=== PATIENT | female | born 2000 ===

== ENCOUNTER 2024-11-28 21:35 | Emergency (ER) | payer MEDICAID, SELFPAY ==
[2024-11-28 21:44] VITALS: BP 102/64; PULSE 120; RESP 16; TEMP 37.2; O2SAT 98; BMI 25.2
--- NOTE | 2024-11-28 22:06 | MHC.EDTECH ---
Patient brought into triage area,labs,and urine collected,and sent to lab
[2024-11-28 22:26] LABS: Hematocrit 38.3 % (37.0-47.0); Hemoglobin 12.4 g/dl (12.0-16.0); Mean Corpuscular HGB Conc 32.4 g/dl (31.0-35.0); Mean Corpuscular Volume 83.4 fL (80.0-98.0); Mean Platelet Volume 8.4 fL (9.4-12.3); Platelet Count 349 X10*3/uL (160-400); Red Blood Count 4.59 X10*6/uL (4.20-5.50); Red Cell Distribution Width 14.4 % (11.0-16.0); White Blood Count 9.5 X10*3/uL (4.8-10.8)
[2024-11-28 22:30] LABS: Appearance Urine Turbid; Color Urine Dark Yellow; Glucose Urine UA Negative (Negative); Leukocyte Esterase Urine Moderate (2+) (Negative); Nitrite Urine Negative (Negative); PH 5.5 (5.0-9.0); Specific Gravity - Urine >= 1.030 (1.005-1.025); UMIC TRIGGER UACC YES; UPreg QC Valid YES; Urine Blood Trace (Negative); Urine Ketones 40 mg/dL (Negative); Urine Pregnancy NEGATIVE (NEGATIVE); Urine Protein 30 (1+) mg/dL (Neg-Trace)
[2024-11-28 22:34] LABS: Alanine Aminotransferase 15 U/L (0-31); Albumin Level 3.9 g/dL (3.5-5.0); Alkaline Phosphatase 82 U/L (39-117); Anion Gap 6 (12-20); Aspartate Amino Transferase 26 U/L (5-31); Bilirubin Total 0.6 mg/dL (0.0-1.0); Blood Urea Nitrogen 8 mg/dL (9-16); Carbon Dioxide 23 mmol/L (22-29); Chloride 110 mmol/L (96-108); Creatinine Clr Calc Pharmacy 97.2; Estimated Glomerular Filt Rate > 60; Glucose Random 101 mg/dL (60-115); Potassium 3.3 mmol/L (3.3-5.1); Sodium 136 mmol/L (135-145); Total Protein 7.3 g/dL (6.5-8.0)
[2024-11-28 22:38] LABS: Bacteria Urine 4+ (None Seen); Squamous Epithelial Cell Urine >20 /HPF (0-2); UACC Culture Trigger YES; WBC Urine 21-50 /HPF (0-5)
[2024-11-28 23:59] VITALS: BP 102/68; PULSE 101; RESP 18; TEMP 37.2; O2SAT 100
--- NOTE | 2024-11-29 02:33 | ED_ITS ---
HPI - Abdominal Pain General Chief Complaint: Abdominal Pain Stated Complaint: vomiting, abdominal pain Time Seen by Provider: 11/29/24 02:32 Source: patient and other (Boyfriend) Mode of arrival: ambulatory Limitations: language barrier (Patient was Korean-speaking only, [facility] early childhood assistant used) History of Present Illness ED Provider: Dr. Trae Rice HPI narrative: 24-year-old female with no significant past medical history who presents emergency department for evaluation of nausea vomiting and abdominal pain with symptoms beginning last night. The patient states she has had multiple episodes of vomiting and unable to hold down food or fluid. She was complaining of moderate to severe abdominal pain. She points to her epigastric area when asked to localize his pain. She states she was feeling weak, dizzy and fatigued. She denied fever but did have chills. She denied rhinorrhea sore throat, cough, chest pain or shortness of breath. She denied myalgias arthralgias. Related Data Previous Rx's ?Medication ?Instructions ?Recorded acetaminophen 500 mg tablet 1,000 mg (2 x 500 mg) PO Q6H PRN 11/29/24 (Tylenol Extra Strength) fever or pain #20 tabs ibuprofen 400 mg tablet 400 mg PO TID PRN fever or pain 11/29/24 #30 tabs ondansetron 4 mg disintegrating 4 mg PO Q6-8H PRN nausea and 11/29/24 tablet vomiting #14 tabs Allergies Allergy/AdvReac Type Severity Reaction Status Date / Time No Known Allergies Allergy Verified 11/28/24 21:46 Review of Systems Review of Systems Yes all other systems are reviewed and are negative [facility] Past Medical History [facility] Narrative: Social history: She denies tobacco, alcohol and drug use Social History Social History Alcohol intake: current Alcohol intake frequency: holidays/special occasions only Smoked in Last 30 Days: No Use of substances other than those prescribed or required for medical reasons: No Advance Directives: No Advance Directives Information Provided: No Patient : No Physical Exam ED Vital Signs: Vital Signs - 24 hr 11/28/24 21:44 11/28/24 23:59 11/29/24 04:11 Temperature 98.9 F 98.9 F 97.8 F Pulse Rate 120 H 101 H 88 Respiratory Rate 16 18 16 Blood Pressure 102/64 102/68 95/48 L Pulse Oximetry 98 100 98 Oxygen Delivery Method Room Air Room Air BMI result Body Mass Index 25.2 Vital signs were normal Exam: General: Awake, alert in no distress Head: Normocephalic, atraumatic EENT: PERRL, Lids normal, sclera normal, conjunctiva normal, nose normal , ears normal, throat without erythema or exudates Neck: Supple, no adenopathy Lung: breath sounds symmetric, no wheezing, rales or rhonchi Chest: symmetric movement, nontender Heart: regular rate and rhythm, normal S1, S2 no murmurs or rubs Abdomen: soft, non-tender, nondistended, normal bowel sounds Back: no vertebral tenderness, no CVAT Extremities: no deformities, moves all extremities symmetrically Neuro: Awake, alert, oriented, normal speech, cranial nerves intact, moves all extremities symmetrically Psych: Pleasant, cooperative Medical Decision Making Medical Decision Making [facility] Narrative: 24-year-old female with no significant past medical history who presents emergency department for evaluation of nausea vomiting and abdominal pain with symptoms beginning last night. The patient states she has had multiple episodes of vomiting and unable to hold down food or fluid. She was complaining of moderate to severe abdominal pain. She points to her epigastric area when asked to localize his pain. She states she was feeling weak, dizzy and fatigued. Vital signs were unremarkable. Physical examination was unremarkable except for epigastric tenderness. Differential diagnosis: ?Includes but is not limited to pancreatitis, diverticulitis, gastritis, viral syndrome, gastroenteritis, electrolyte abnormalities, anemia, dehydration Course: 03:04 My interpretation patient's laboratory evaluation is as follows: CBC was normal. CMP revealed an elevated chloride of 110 otherwise unremarkable. Urinalysis revealed a high specific gravity, positive protein, trace blood, moderate leukocyte esterase. High microscopic revealed 11-20 RBCs, 21-50 WBCs greater than 20 squamous cells 4+ bacteria-this is non clean catch specimen Patient was presentation is most consistent with viral syndrome. Patient was ordered to get the following: Normal saline IV x1 L, Toradol 15 mg IV and Zofran 4 mg IV. 06:15 Patient was feeling significantly better with the above treatment. Patient was discharged with prescriptions for Zofran 4 mg ODT, ibuprofen and Tylenol. She was given printed and verbal instructions and discharged home. Admission/Observation Consideration of admission/observation: Escalation of care including admission/observation considered (Yes) Lab Data [facility] Lab Attestation statement: I reviewed the patient's lab results. 11/28/24 22:06 11/28/24 22:06 Labs: Lab Results 11/28/24 Range/Units 22:06 WBC 9.5 (4.8-10.8) X10*3/uL RBC 4.59 (4.20-5.50) X10*6/uL Hgb 12.4 (12.0-16.0) g/dl Hct 38.3 (37.0-47.0) % MCV 83.4 (80.0-98.0) fL MCH 27.0 (27.0-33.0) pg MCHC 32.4 (31.0-35.0) g/dl RDW 14.4 (11.0-16.0) % Plt Count 349 (160-400) X10*3/uL MPV 8.4 L (9.4-12.3) fL Absolute Nucleated RBC 0.000 (0.0-0.012) X10*3/uL Nucleated RBC % (auto) 0.0 (0.0-0.2) /100WBC Sodium 136 (135-145) mmol/L Potassium 3.3 (3.3-5.1) mmol/L Chloride 110 H (96-108) mmol/L Carbon Dioxide 23 (22-29) mmol/L Anion Gap 6 L (12-20) BUN 8 L (9-16) mg/dL Creatinine 0.78 (0.5-1.4) mg/dL Estim Creat Clear Calc 97.2 Estimated GFR > 60 Random Glucose 101 (60-115) mg/dL Calcium 8.0 L (8.4-10.2) mg/dL Total Bilirubin 0.6 (0.0-1.0) mg/dL AST 26 (5-31) U/L ALT 15 (0-31) U/L Alkaline Phosphatase 82 (39-117) U/L Total Protein 7.3 (6.5-8.0) g/dL Albumin 3.9 (3.5-5.0) g/dL Urine Color Dark Yellow Urine Appearance Turbid Urine pH 5.5 (5.0-9.0) Ur Specific [place] >= 1.030 H (1.005-1.025) Urine Protein 30 (1+) H (Neg-Trace) mg/dL Urine Glucose (UA) Negative (Negative) mg/dL Urine Ketones 40 (Negative) mg/dL Urine Blood Trace H (Negative) Urine Nitrite Negative (Negative) Ur Leukocyte Esterase Moderate (2+) H (Negative) Urine RBC 11-20 H (0-2) /HPF Urine WBC 21-50 H (0-5) /HPF Ur Squamous Epith Cells >20 (0-2) /HPF Urine Bacteria 4+ (None Seen) Hyaline Casts 3-5 (0-2) /LPF Urine Test NEGATIVE (NEGATIVE) Prescription Management I considered prescription management with: Pain Medication and Other (Antiemetic: Zofran) Medications Administered Discontinued Medications Generic Name Dose Route Start Last Admin Trade Name [place] PRN Reason Stop Dose Admin Sodium Chloride 1,000 mls @ 999 mls/hr 11/29/24 02:45 11/29/24 04:06 Ns IV 11/29/24 03:45 Infused .Q1H1M STA Infusion Ketorolac Tromethamine 15 mg 11/29/24 02:45 11/29/24 02:56 Ketorolac Tromethamine 15 Mg/Ml Vial IVPUSH 11/29/24 02:46 15 mg ONCE STA Administration Ondansetron HCl 4 mg 11/29/24 02:45 11/29/24 02:56 Ondansetron Hcl 4 Mg/2 Ml Vial IVPUSH 11/29/24 02:46 4 mg ONCE ONE Administration Discharge Plan Discharge Clinical Impression: Viral syndrome, Abdominal pain, Vomiting Patient Disposition: Home, Self-Care Instructions: Viral Syndrome (ED) Additional Instructions: Your blood work was unremarkable. Your symptoms are consistent with a viral infection. Take ibuprofen 400 mg pills, 1 pills every 6 hours as needed for pain or fever. Take Tylenol (acetaminophen) 500 mg pills, 2 pills every 6 hours as needed for pain or fever. Take Zofran ODT 4 mg pills, 1 pill dissolved in your mouth every 8 hours as needed for nausea and vomiting. For the next 24 hours, stay on a ANGI diet (bananas, rice, applesauce, tea and toast). Follow-up with your doctor in 2 days. Please return to the emergency department if your symptoms get worse or if you develop any symptoms that are concerning to you. Prescriptions: New acetaminophen [Tylenol Extra Strength] 500 mg tablet 1,000 mg PO Q6H PRN (Reason: fever or pain) Qty: 20 0RF ibuprofen 400 mg tablet 400 mg PO TID PRN (Reason: fever or pain) Qty: 30 0RF ondansetron 4 mg tablet,disintegrating 4 mg PO Q6-8H PRN (Reason: nausea and vomiting) Qty: 14 0RF Print Language: Korean
[2024-11-29] MEDS: ondansetron HCL 4 MG/2 ML VIAL IVPUSH (02:56)
[2024-11-29] MEDS: 0.9 % Sodium Chloride 1,000 ML 999 ML IV (02:56)
[2024-11-29] MEDS: Ketorolac Tromethamine 15 MG/ML VIAL IVPUSH (02:56)
[2024-11-29 04:11] VITALS: BP 95/48; PULSE 88; RESP 16; TEMP 36.6; O2SAT 98
[2024-11-29 06:26] VITALS: BP 95/48; PULSE 88; RESP 16; TEMP 36.6; O2SAT 98
== END 2024-11-29 06:34 | disposition home or self-care (01) ==
PROVIDERS: Emergency Provider Emergency Medicine Emergency Medical Services
DX: B34.9 Viral infection, unspecified (principal); R10.2 Pelvic and perineal pain; R11.2 Nausea with vomiting, unspecified; Z79.899 Other long term (current) drug therapy
CPT/HCPCS: 36415; 80053; 81001; 81025; 85027; 87086; 96361; 96374; 96375; 99284; J1885; J2405

== ENCOUNTER 2025-01-16 23:22 | Emergency (ER) | payer MEDICAID, SELFPAY ==
--- NOTE | ~2025-01-16 | XR_ITS ---
CLINICAL HISTORY: fall, pain 3 view right ankle Comparison: None Findings: No acute fractures or dislocations. No significant loss of joint space, osteophytes, or erosions. No ankle effusion. No radiopaque foreign body. IMPRESSION: 1. No acute findings. This document has been electronically signed by: Braxton Claire MD, PHD on 01/17/2025 03:18:59
[2025-01-16 23:26] VITALS: BP 107/70; PULSE 96; RESP 16; TEMP 36.4; O2SAT 95; BMI 23.4
[2025-01-17 00:37] VITALS: BP 107/58; PULSE 83; RESP 16; TEMP 36.8; O2SAT 99
[2025-01-17 01:25] VITALS: BP 105/65; PULSE 81; RESP 15; TEMP 36.7; O2SAT 99
[2025-01-17] MEDS: Acetaminophen 325 MG TABLET 975 MG PO (01:36)
--- NOTE | 2025-01-17 03:07 | ED.LOWEXIN ---
HPI - Extremity Injury (Lower) General Chief Complaint: Extremity Injury, Lower Stated Complaint: Sprained right Ankle? Time Seen by Provider: 01/17/25 03:00 Source: patient Mode of arrival: wheelchair Limitations: no limitations History of Present Illness ED Provider: Dr. Kirstin Martinez HPI Narrative: patient comes in the emergency room complaining of right ankle pain. Patient states that earlier today she slipped and sprain her ankle. Unable to bear weight. Denies any other injuries. Related Data Previous Rx's ?Medication ?Instructions ?Recorded acetaminophen 500 mg tablet 1,000 mg (2 x 500 mg) PO Q6H PRN 11/29/24 (Tylenol Extra Strength) fever or pain #20 tabs ibuprofen 400 mg tablet 400 mg PO TID PRN fever or pain 11/29/24 #30 tabs ondansetron 4 mg disintegrating 4 mg PO Q6-8H PRN nausea and 11/29/24 tablet vomiting #14 tabs ibuprofen 600 mg tablet 600 mg PO QID PRN fever or pain 01/17/25 #30 tabs Allergies Allergy/AdvReac Type Severity Reaction Status Date / Time No Known Allergies Allergy Verified 01/16/25 23:27 Review of Systems Review of Systems: Constitutional : No Weight loss, No Fever, No Chills, No Night Sweats, No Fatigue, No Malaise ENT/Mouth : No Hearing loss, No Ear Pain, No Nasal Congestion, No Sinus Pain, No Hoarseness, No sore throat, No Rhinorrhea, No Swallowing Difficulty Eyes: No Eye Pain, No Swelling, No Redness, No Foreign Body, No Discharge, No Vision Changes Cardiovascular : No Chest Pain, No SOB, No Dyspnea on Exertion, No Orthopnea, No Edema, No Palpitations Respiratory : No Cough, No Sputum, No Wheezing, No Smoke Exposure, No Dyspnea Gastrointestinal : No Nausea, No Vomiting, No Diarrhea, No Constipation, No abdominal Pain, No Hematochezia, No Melena Genitourinary : no irregular bleeding, No Dysuria, No Urinary Frequency, No Hematuria, No Urinary Incontinence, No Urgency, No Flank Pain, No Urinary Flow Changes, No Hesitancy Musculoskeletal : Complaining of right ankle pain, No Myalgias, No Joint Swelling Skin : No Skin Lesions, No rash Neuro : No Weakness, No Numbness, No Paresthesias, No Loss of Consciousness, No Dizziness, No Headache Psych : No Anxiety/Panic, No Depression, No SI/HI/AH/VH, No Social Issues, Heme/Lymph: No Bruising, No Bleeding,No Lymphadenopathy Endocrine : No Polyuria, No Polydipsia, No Temperature Intolerance [facility] Social History Social History Alcohol intake: current Alcohol intake frequency: holidays/special occasions only Smoked in Last 30 Days: No Use of substances other than those prescribed or required for medical reasons: No Advance Directives: No Advance Directives Information Provided: Yes Physical Exam Vital Signs: Vital Signs: Last Vital Signs Temp 98.0 F 01/17/25 01:25 Pulse 81 01/17/25 01:25 Resp 15 01/17/25 01:25 BP 105/65 01/17/25 01:25 Pulse Ox 99 01/17/25 01:25 O2 Del Method Room Air 01/17/25 01:25 BMI result Body Mass Index 23.4 Const: Other: Appearance: Alert. Oriented X3. No acute distress. Eyes: Pupils equal, round and reactive to light. ENT: Pharynx normal. Neck: Normal inspection. Neck supple. No lymph nodes noted. No crepitus CVS: Normal heart rate and rhythm. Pulses normal. Normal S1 and S2 Respiratory: No respiratory distress. Breath sounds normal. No Wheezing. No rales Abdomen: Soft and nontender. No rigidity. No distention. Skin: Skin warm and dry. Normal skin color. Normal skin turgor. Extremities: No lower extremity edema. no obvious deformity, no ecchymosis, no swelling. Patient states that she can not stand up or bear weight due to pain Neuro: Oriented X 3. No motor deficit. No sensory deficit. Moving all extremities. No slurred speech. CN 2 through 12 grossly intact Psych: calm, cooperative, normal affect Medications Administered Discontinued Medications Generic Name Dose Route Start Last Admin Trade Name Freq PRN Reason Stop Dose Admin Acetaminophen 975 mg 01/17/25 01:31 01/17/25 01:36 Acetaminophen 325 Mg Tablet PO 01/17/25 01:32 975 mg ONCE ONE Administration Medical Decision Making Medical Decision Making [facility] Narrative: my interpretation of x-ray: No fracture Independent Interpretation I performed an independent interpretation of an: Plain X-Ray Radiology Impression Discussion of test interpretation with radiology: I have reviewed the radiologist's reading. Radiologist Impression: No acute fractures or dislocations. No significant loss of joint space, osteophytes, or erosions. No ankle effusion. No radiopaque foreign body. IMPRESSION: 1. No acute findings. Discharge Plan Discharge Clinical Impression: Ankle sprain and strain Patient Disposition: Home, Self-Care Instructions: Ankle Sprain (ED), Crutch Instructions (ED), Ice Pack Application (ED) Additional Instructions: Please follow-up with your primary care physician tomorrow. If you have any worsening or new symptoms, please return to the emergency room or call 911 Prescriptions: New ibuprofen 600 mg tablet 600 mg PO QID PRN (Reason: fever or pain) Qty: 30 0RF No Action acetaminophen [Tylenol Extra Strength] 500 mg tablet 1,000 mg PO Q6H PRN (Reason: fever or pain) Qty: 20 0RF ibuprofen 400 mg tablet 400 mg PO TID PRN (Reason: fever or pain) Qty: 30 0RF ondansetron 4 mg tablet,disintegrating 4 mg PO Q6-8H PRN (Reason: nausea and vomiting) Qty: 14 0RF Stand Alone Forms: Work/School Release Print Language: Maltese
[2025-01-17 04:28] VITALS: BP 105/65; PULSE 81; RESP 15; TEMP 36.7; O2SAT 99
== END 2025-01-17 04:32 | disposition home or self-care (01) ==
PROVIDERS: Emergency Provider Emergency Medicine
DX: S93.401A Sprain of unspecified ligament of right ankle, initial encounter (principal); W01.0XXA Fall on same level from slipping, tripping and stumbling without subsequent striking against object, initial encounter; Y93.9 Activity, unspecified; Y92.9 Unspecified place or not applicable; Y99.8 Other external cause status
CPT/HCPCS: 73600; 99283; 99284

== ENCOUNTER → 2025-01-16 23:40 | Outpatient (BNV) | payer MEDICAID, SELFPAY | PROVIDERS: Emergency Provider Emergency Medicine; Visit Provider General Practice | DX: M25.571 Pain in right ankle and joints of right foot (principal) | CPT/HCPCS: 73600 ==

== ENCOUNTER 2025-10-03 14:45 | Outpatient (REF) | payer OTHER, MEDICAID, SELFPAY ==
--- OUTSIDE RECORDS SUMMARY | 2025-09-18 09:45 | XMS_ITS ---
Author Organization [facility] Address [address] [place] [address] Care Team Providers Care Upper Trimmer Name Role Phone MERT BETHEA Unavailable [phone] REASON FOR VISIT IUD In Social History Sex Assigned At : Social History Observation Description Sex Assigned At Female Encounters Encounter Location Date Provider Diagnosis [address] [phone] 03/2025 MERT BETHEA Plan Of Treatment Next Appt Details Provider Name:MERT BETHEA, 08/2025 10:00:00 AM, [address] [place] [address], [phone], Provider Name:MERT BETHEA, 03:00:00 PM, [address] [place] [address], [phone], Progress Notes * Marc ORTEGAB:1999 (25 yo F)Acc No.[id number]:09/18/2025 Progress Note Patient: Jessi rollinsSushila choe Provider: Timur BETHEA :2000 A ge:25 Y S ex:Female Date:09/18/2025 Address:[address] [place], [id number] Subjective: * Chief Complaints: * I UD In * Electronic signature of ANNELIESE BETHEA CNM on 10/03/2025 at 08:17 PM EST Sign off status: Pending * Provider: Timur BETHEA Date: 11/18/2024 Generated for Terri odonnell/Suzi/Merlin on: 12/03/2024 08:17 PM EST
--- NOTE | ~2025-10-03 | XR_ITS ---
EXAMINATION: XR CHEST CLINICAL INFORMATION: positive TB test COMPARISON: None available. TECHNIQUE: 2 views of the chest were obtained. FINDINGS: The cardiac, hilar, and mediastinal contours are normal. The lungs are clear bilaterally. There is no pneumothorax or pleural effusion. There is no focal osseous or soft tissue abnormality. There is a gentle levoconvex thoracic scoliosis. XR/XR chest 2V IMPRESSION: Normal chest. Electronically signed by: Clay Obregon MD 10/03/2025 03:05 PM ADRIAN GARCIA
--- OUTSIDE RECORDS SUMMARY | 2025-10-03 14:20 | XMS_ITS | Encounter Summary ---
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 Social History Tobacco Use Types Packs/Day Years Used Date Smoking Tobacco: Never Smokeless Tobacco: Never Tobacco Cessation:Counseling Given: Not Answered Comments No Sex and Gender Information Value Date Recorded Sex Assigned at Female 10/01/2024 3:33 PM EST Legal Sex Female 11:27 AM EDT Gender Identity Female 10/01/2024 3:33 PM EST Sexual Orientation Choose not to disclose 2023 3:33 PM EST documented as of this encounter Last Filed Vital Signs Vital Sign Reading Time Taken Comments Blood Pressure 110/70 10/03/2025 1:43 PM EST Pulse 83 10/03/2025 1:43 PM EST Temperature 36.6 C (97.8 F) 10/03/2025 1:43 PM EST Respiratory Rate 21 10/03/2025 1:43 PM EST Oxygen Saturation 99% 10/03/2025 1:43 PM EST Inhaled Oxygen Concentration - - Weight 59.4 kg (131 lb) 10/03/2025 1:43 PM EST Height 152.4 cm (5') 10/03/2025 1:43 PM EST Body Mass Index 25.58 10/03/2025 1:43 PM EST documented in this encounter Progress Notes * Phoebe Griffithsjosias, DO - 10/03/2025 2:20 PM EST SUBJECTIVE: Sushila Rubio is a 25 y.o. year old female who presents for [place]F [place] visit. She has not hadPCP since she moved from [facility] more than one year ago. HPI She comes to [place] c/o headache. Sushila Rubio, age 25 years Headache - Reports headache for several days prior to the visit - Headache described as persistent, sometimes stronger, and not fully relieved by medication - Onset approximately 5 days prior to the encounter - Headache is intermittent, comes and goes, sometimes more intense - Has had headaches before, but this is the first time experiencing headaches for so many consecutive days - Reports associated nausea, especially with food - Denies photophobia and phonophobia (lights and noise do not bother her) - Has tried medication for headache, which helps but does not completely resolve symptoms Weight loss and decreased appetite - Reports weight loss and lack of appetite prior to the visit - States do not feel like eating anything - Unable to compare current weight to previous weight, but notes physical changes in clothing fit Tuberculosis screening - Underwent tuberculosis (TB) test for employment purposes prior to the visit - TB test performed at a clinic, with follow-up visits on Tuesday and Tuesday prior to the encounter - TB test result reported as positive - No symptoms of active TB reported - Has been referred to a TB clinic for further evaluation Nausea - Reports nausea, particularly with food Past surgical history relevant to present illness - History of umbilical hernia repair Misc - Last menstrual period reported as September 14, 2025 - Reports mild anxietyHeadache - Reports headache for several days prior to the visit, started about 5 days ago - She describes headache as a pressure pain in the frontal and temporal areas, she denies any URI sx - Headache described as persistent, sometimes stronger and more intense, other times less intense - Has tried tylenol for headache, which helps but does not completely resolve symptoms - Has had headaches before, but this is the first time experiencing headaches for so many consecutive days - Reports associated nausea, especially with food - Denies photophobia and phonophobia (lights and noise do not bother her) - Denies any depressive sx, reports mild anxiety Weight loss and decreased appetite - Reports weight loss and lack of appetite - States do not feel like eating anything ; she feels nausea when she eats - States that she used to weigh 60kg; she has not checked weight recently but feels that her clothing fits differently - She is sexually active with her partner, LMP 09/14/2025 Tuberculosis screening - Underwent tuberculosis (TB) test for employment purposes - TB test performed at a clinic in [place] on Tuesday and follow up on Tuesday - TB test result reported as positive - No symptoms of active TB reported - Has been referred to a TB clinic for further evaluation and was told would be contacted in 3-4 weeks; she was not referred for CXR Review of Systems Constitutional: Negative for chills and fever. HENT: Negative for congestion, postnasal drip, rhinorrhea and sore throat. Eyes: Negative for photophobia and visual disturbance. Respiratory: Negative for cough and shortness of breath. Cardiovascular: Negative for chest pain and leg swelling. Gastrointestinal: Positive for nausea. Negative for abdominal pain, diarrhea and vomiting. Skin: Negative for rash. Neurological: Positive for headaches. Negative for dizziness. There is no problem list on file for this patient. No Known Allergies OBJECTIVE Vitals: 10/03/25 1343 BP: 110/70 BP Location: Right arm Patient Position: Sitting BP Cuff Size: Adult Pulse: 83 Resp: 21 Temp: 97.8 ??F (36.6 ??C) TempSrc: Oral SpO2: 99% Weight: 131 lb (59.4 kg) Height: 5' (1.524 m) Physical Exam Constitutional: General: She is not in acute distress. Appearance: Normal appearance. HENT: Right Ear: Tympanic membrane, ear canal and external ear normal. Left Ear: Tympanic membrane, ear canal and external ear normal. Nose: No congestion or rhinorrhea. Mouth/Throat: Pharynx: No oropharyngeal exudate or posterior oropharyngeal erythema. Eyes: Extraocular Movements: Extraocular movements intact. Conjunctiva/sclera: Conjunctivae normal. Pupils: Pupils are equal, round, and reactive to light. Cardiovascular: Rate and Rhythm: Normal rate and regular rhythm. Heart sounds: Normal heart sounds. No murmur heard. Pulmonary: Effort: Pulmonary effort is normal. Breath sounds: Normal breath sounds. No wheezing or rhonchi. Musculoskeletal: Cervical back: Normal range of motion and neck supple. No tenderness. Lymphadenopathy: Cervical: No cervical adenopathy. Neurological: General: No focal deficit present. Mental Status: She is alert and oriented to person, place, and time. Cranial Nerves: No cranial nerve deficit. Motor: No weakness. Gait: Gait normal. Psychiatric: Mood and Affect: Mood normal. Office Visit on 10/03/2025 Component Date Value Ref Range Status Preg Test, Ur 10/03/2025 Negative Negative, Indeterminate, None Detected, Trace, 3+, Specimen unsatisfactory for evaluation, Weakly Positive, 1+, 2+ Final QC Media Lot # 10/03/2025 [id number] Final Lot# Expiration Date 10/03/2025 [id number] Final ASSESSMENT/PLAN Diagnoses and all orders for this visit: Acute intractable headache, unspecified headache type Improved but not relieved with pain meds, no associated symptoms, no acute findings on exam, likelytension headache -provided reassurance -trial toradol to break current headache -trial motrin prn acute headache -advised keep MOCTEZUMA log and bring to CHEF visit for review -advised go to ED if no improvement with above or severe worsening pain - ketorolac (Toradol) injection 30 mg Nausea Predominantly with eating, possibly 2/2 GERD -check basic labs -trial prilosec daily -advised rtc if symptoms change or worsen, she agrees with plans - T4, Free; Future - Lipid Panel, Standard; Future - TSH; Future - Vitamin D, 25-Hydroxy, Total, Immunoassay; Future - Hepatic Function Panel; Future - Hemoglobin A1c; Future - CBC; Future - Basic Metabolic Panel; Future - Hepatitis B surface antigen, EIA; Future - Chlamydia/N. 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 Do not crush, chew, or split., Disp: 30 tablet, Rfl: 3 No current facility-administered medications for this visit. This note was drafted using Ambient (AI) technology. The patient/patient's guardian has been informed and has consented to the use of this technology: Yes documented in this encounter Plan of Treatment Scheduled Orders Name Type Priority Associated Diagnoses Orde r Schedule T4, Free Lab Routine Nausea Expected: 10/03/2025 (Approximate), Expires: 10/03/2026 Lipid Panel, Standard Lab Routine Nausea Expected: 10/03/2025 (Approximate), Expires: 10/03/2026 TSH Lab Routine Nausea Expected: 10/03/2025 (Approximate), Expires: 10/03/2026 Vitamin D, 25-Hydroxy, Total, Immunoassay Lab Routine Nausea Expected: 10/03/2025 (Approximate), Expires: 10/03/2026 Hepatic Function Panel Lab Routine Nausea Expected: 10/03/2025 (Approximate), Expires: 10/03/2026 Hemoglobin A1c Lab Routine Nausea Expected: 10/03/2025 (Approximate), Expires: 10/03/2026 CBC Lab Routine Nausea Expected: 10/03/2025, Expires: 10/03/2026 Basic Metabolic Panel Lab Routine Nausea Expected: 10/03/2025 (Approximate), Expires: 10/03/2026 Hepatitis B surface antigen, EIA Lab Routine Nausea Expected: 10/03/2025 (Approximate), Expires: 10/03/2026 Chlamydia/N. Gonorrhoeae RNA, TMA, Urogenitial Microbiology Routine Nausea Ordered: 10/03/2025 HIV-1/2 Antigen and Antibodies, Fourth Generation, with Reflexes Lab Routine Nausea Expected: 10/03/2025 (Approximate), Expires: 10/03/2026 Hepatitis C Antibody with Reflex to HCV, RNA, Quantitative, Real-Time PCR Lab Routine Nausea Expected: 10/03/2025, Expires: 10/03/2026 RPR (Monitor) with Reflex to Titer Lab Routine Nausea Expected: 10/03/2025, Expires: 10/03/2026 Hepatitis B Surface Antibody, Qualitative Lab Routine Nausea Expected: 10/03/2025 (Approximate), Expires: 10/03/2026 Hepatitis A Antibody, Total Lab Routine Nausea Expected: 10/03/2025 (Approximate), Expires: 10/03/2026 Hepatitis B Core Antibody, Total Lab Routine Nausea Expected: 10/03/2025 (Approximate), Expires: 10/03/2026 T-SPOT .TB Lab Routine 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 Expected: 10/03/2025 (Approximate), Expires: 10/03/2026 Prealbumin Lab Routine Nausea Expected: 10/03/2025, Expires: 10/03/2026 documented as of this encounter Procedures Procedure Name Priority Date/Time Associated Diagnosis Comments XR CHEST 2 VIEWS STAT 10/03/2025 3:15 PM EST 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 POCT , URINE Routine 10/03/2025 2:55 PM EST Nausea documented in this encounter Results * XR Chest 2 Views (10/03/2025 3:15 PM EST) Anatomical Region Laterality Modality Chest Radiographic Nelida ging 10/03/2025 3:15 PM EST Narrative 10/03/2025 3:08 PM EST [address] [address] XRay Report Signed Patient: Sushila Ortiz MR# : [id number] : 2000 Acct:[id number] Age/Sex: 25 / F ADM Date: 10/03/25 Loc: [facility] Attending Dr: Phoebe Grajeda DO Ordering Physician: Phoebe Grajeda DO Date of Service: 10/03/25 Procedure(s): XR chest 2V Accession Number(s): [id number] cc: Phoebe Grajeda DO Reason for Exam: positive TB test EXAMINATION: XR CHEST CLINICAL INFORMATION: positive TB test COMPARISON: None available. TECHNIQUE: 2 views of the chest were obtained. FINDINGS: The cardiac, hilar, and mediastinal contours are normal. The lungs are clear bilaterally. There is no pneumothorax or pleural effusion. There is no focal osseous or soft tissue abnormality. There is a gentle levoconvex thoracic scoliosis. XR/XR chest 2V IMPRESSION: Normal chest. Electronically signed by: Clay Obregon MD 10/03/2025 03:05 PM [facility] Dictated By: Clay Obregon MD Signed By: <Electronically signed by Clay Obregon MD in OV> 10/03/25 1505 DD/ 1515 TD/TT: 10/03/25 1503 Watch Guard Gate: Procedure Note Donotuseinterpreter, Image - 10/03/[address] [address] XRay Report Signed Patient: Young Ortiz# : [id number] : 2000Acct:[id number] Age/Sex: 25 / FADM Date: 10/03/25 Loc: HO.HHCX Attending Dr: Phoebe Grajeda DO Ordering Physician: Phoebe Grajeda DO Date of Service: 10/03/25 Procedure(s): XR chest 2V Accession Number(s): [id number] cc: Phoebe Grajeda DO Reason for Exam: positive TB test EXAMINATION: XR CHEST CLINICAL INFORMATION: positive TB test COMPARISON: None available. TECHNIQUE: 2 views of the chest were obtained. FINDINGS: The cardiac, hilar, and mediastinal contours are normal. The lungs are clear bilaterally. There is no pneumothorax or pleural effusion. There is no focal osseous or soft tissue abnormality. There is a gentle levoconvex thoracic scoliosis. XR/XR chest 2V IMPRESSION: Normal chest. Electronically signed by: Clay Obregon MD 10/03/2025 03:05 PM EST RP Dictated By: Clay Obregon MD Signed By: <Electronically signed by Clay Obregon MD in OV> 10/03/25 1505 DD/ 1515 TD/TT: 10/03/25 1503 Watch Guard Gate: Phoebe Grajeda DO IMG XR PROCEDURES Final Resu lt * POCT Urine (10/03/2025 2:55 PM EST) Preg Test, Ur Negative Negative, Indeterminate, None Detected, Trace, 3+, Specimen unsatisfactory for evaluation, Weakly Positive, 1+, 2+ QC Media Lot # [id number] Lot# Expiration Date [id number] Urine 10/03/2025 2:55 PM EST Phoebe Grajeda DO POINT OF CARE TEST ENTER/KEYANA T ORDERABLES Final Result documented in this encounter Visit Diagnoses Diagnosis Acute intractable headache, unspecified headache type- Primary Nausea Nausea alone 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
--- OUTSIDE RECORDS SUMMARY | 2025-10-03 20:18 | XMS_ITS | Clinical Summary ---
Author Organization [employer] Address [address] [facility] 7t [place] [address] Care Team Providers Care Winderman Name Role Phone Unavailable Primary Care Provider Unavailabl e Allergies No known active allergies Medications omeprazole OTC (PriLOSEC OTC) 20 MG EC tablet Take 1 tablet (20 mg) by mouth before breakfast. Do not crush, chew, or split. 30 tablet 3 5 10/03/20 26 Active ibuprofen 400 MG tablet Take 1 tablet (400 mg) by mouth every 6 (six) hours if needed for moderate pain, headaches or mild pain. 40 tablet 1 5 10/03/20 26 Active Hospital, Clinic, or Other Facility Administered Medication Ordered Dose Route Frequency Start Date End Date Status ketorolac (Toradol) injection 30 mgIndications:Acute intractable headache, unspecified headache type 30 mg IM Once 10/03/2025 10/03/2025 Ended Active Problems No known active problems Encounters Date Type Department Care Team Description 10/03/2025 2:20 PM EST Office Visit [facility] [address] [place] [address] [phone] Phoebe Grajeda DO Acute intractable headache, unspecified headache type (Primary Dx); Nausea; 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 10/03/2025 Travel 09/26/2025 Telephone [facility] [address] [place] [address] [phone] Naldo Gordon MD 09/02/2025 Telephone [facility] [address] [place] [phone] Naldo Gordon MD 09/02/2025 Telephone [facility] [address] [place] [phone] Naldo Gordon MD from Last 3 Months Social History Tobacco Use Types Packs/Day Years Used Date Smoking Tobacco: Never Smokeless Tobacco: Never Tobacco Cessation:Counseling Given: Not Answered Comments No Sex and Gender Information Value Date Recorded Sex Assigned at Female 10/01/2024 3:33 PM EST Legal Sex Female 11:27 AM EDT Gender Identity Female 10/01/2024 3:33 PM EST Sexual Orientation Choose not to disclose 2023 3:33 PM EST Last Filed Vital Signs Vital Sign Reading [...] Mass Index 25.58 10/03/2025 1:43 PM EST Plan of Treatment Health Maintenance Due Date Last Done Comments Depression Screening 1999 HIV Screening 1999 SDOH Screening 1999 Disability Screening 1999 Alcohol/Substance Use Screening 2011 Family Planning (PISQ) 2014 HPV Vaccines (1 - 3-dose series) 2014 Hepatitis C Screening 2017 DTaP/Tdap/Td Vaccines (1 - Tdap) 2018 Hepatitis B Vaccines (1 of 3 - 19+ 3-dose series) 2018 Pap Smear 02/28/2020 COVID-19 Vaccine (1 - 2024-2 6 season) 2025 Influenza Vaccine (#1) 2025 Tobacco Screening 10/03/2026 10/03/2025 Zoster Vaccines (1 of 2) 2049 RSV Patients and Pa tients Aged 60 years or older (1 - 1-dose 75+ series) 2074 HIB Vaccines Aged Out No longer eligi ble based on patient's age to complete this topic Hepatitis A Vaccines Aged Out No long er eligible based on patient's age to complete this topic IPV Vaccines Aged Out No longer eligi ble based on patient's age to complete this topic Meningococcal B Vaccine Aged Out No l onger eligible based on patient's age to complete this topic Meningococcal Vaccine Aged Out No angie emanuel eligible based on patient's age to complete this topic Pneumococcal Vaccine: Pediat rics (0 to 5 Years) and At-Risk Patients (6 to 49) Years Aged Out No longer eligi ble based on patient's age to complete this topic RSV under 20 months Aged Out No longe r eligible based on patient's age to complete this topic Rotavirus Vaccines Aged Out No longer eligible based on patient's age to complete this topic Procedures Procedure Name Priority Date/Time Associated Diagnosis Comments XR CHEST 2 VIEWS STAT 10/03/2025 3:15 PM EST 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 POCT , URINE Routine 10/03/2025 2:55 PM EST Nausea from Last 3 Months Results * XR Chest 2 Views (10/03/2025 3:15 PM EST) Anatomical Region Laterality Modality Chest Radiographic Nelida ging 10/03/2025 3:15 PM EST Narrative 10/03/2025 3:08 PM EST [address] [address] XRay Report Signed Patient: Sushila Ortiz MR# : [id number] : 2000 Acct:[id number] Age/Sex: 25 / F ADM Date: 10/03/25 Loc: HO.HHCX Attending Dr: Phoebe Grajeda DO Ordering Physician: Phoebe Grajeda DO Date of Service: 10/03/25 Procedure(s): XR chest 2V Accession Number(s): [id number] cc: Jurcsak,Phoebe A DO Reason for Exam: positive TB test [...] 10/03/25 1505 DD/ 1515 TD/TT: 10/03/25 1503 Financial Sales Representative: Procedure Note Donotuseinterpreter, Image - 10/03/2025 [place] [address] XRay Report Signed Patient: Young Ortiz# : [id number] : 2000Acct:[id number] Age/Sex: M Date: 10/03/25 Loc: HO.HHCX Attending Dr: Phoebe Grajeda DO Ordering Physician: Phoebe Grajeda DO Date of Service: 10/03/25 Procedure(s): XR chest 2V Accession Number(s): [id number] cc: Phoebe Grajeda DO Reason for Exam: [...] 10/03/25 1505 DD/ 1515 TD/TT: 10/03/25 1503 Financial Sales Representative: Phoebe Grajeda DO IMG XR PROCEDURES Final Resu lt * POCT Urine (10/03/2025 2:55 PM EST) Preg Test, Ur Negative Negative, Indeterminate, None Detected, Trace, 3+, Specimen unsatisfactory for evaluation, Weakly Positive, 1+, 2+ QC Media Lot # [id number] Lot# Expiration Date [id number] Urine 10/03/2025 2:55 PM EST Phoebe Grajeda DO POINT OF CARE TEST ENTER/KEYANA T ORDERABLES Final Result from Last 3 Months Insurance [facility]
--- OUTSIDE RECORDS SUMMARY | 2025-10-03 20:18 | XMS_ITS | Encounter Summary ---
Author Organization [employer] Address [address] [place] [address] [address] [place] [address] Care Team Providers Care Security Assurance Analyst Name Role Phone Unavailable Primary Care Provider Unavailabl e Encounter Details Date Type Department Care Team (Latest Contact Info) Description 10/03/2025 Travel Social History Tobacco Use Types Packs/Day Years Used Date Smoking Tobacco: Never Smokeless Tobacco: Never Comments No Sex and Gender Information Value Date Recorded Sex Assigned at Female 10/01/2024 3:33 PM EST Legal Sex Female 11:27 AM EDT Gender Identity Female 10/01/2024 3:33 PM EST Sexual Orientation Choose not to disclose 2023 3:33 PM EST documented as of this encounter Plan of Treatment Not on file documented as of this encounter Visit Diagnoses Not on filedocumented in this encounter
--- OUTSIDE RECORDS SUMMARY | 2025-10-03 20:18 | XMS_ITS | Patient Health Record ---
Author Organization [facility] Address [address] [place] [address] Care Team Providers Care Costume Designer Name Role Phone MERT BETHEA Unavailable [phone] Allergies No Known Allergies Results Component Value Reference Range Flag Notes NuSwab VG+, Pooja 6sp-1800 68 Reviewed date:09/09/2025 11:47:12 AM Interpretation:Chlamydia and BV POSITIVE Performing Lab:[facility] [place], [address] [place] [address], [place], Phone - [phone], Director - Peter Notes/Report: and Drug Administration. by [facility]. It has not been cleared or approved by the Food was developed and its performance characteristics determined 043463-Nobdvwj krusei, RHETT 807478-N parapsilosis/tropicalis; 802012-Mklwuvo lusitaniae, RHETT; Test(s) 180129-Uwwgaef albicans, RHETT; 634292-Gllzmhw glabrata, RHETT; and Drug Administration. by [facility]. It has not been cleared or approved by the Food was developed and its performance characteristics determined Megasphaera 1 Test(s) 579414- Atopobium vaginae; 997594- BVAB 2; 389876- Atopobium vaginae High - 2 A BVAB 2 Moderate - 1 Megasphaera 1 High - 2 A Calculate total score by adding the 3 individual bacterial vaginosis (BV) marker scores together. Total score is interpreted as follows: Total score 0-1: Indicates the absence of BV. Total score 2: Indeterminate for BV. Additional clinical data should be evaluated to establish a diagnosis. Total score 3-6: Indicates the presence of BV. Pooja albicans, RHETT Negative Negative Pooja glabrata, RHETT Negative Negative C parapsilosis/tropicalis Negative Negative This assay does not differentiate C. tropicalis and C. parapsilosis. Pooja lusitaniae, RHETT Negative Negative Pooja krusei, RHETT Negative Negative Trich vag by RHETT Negative Negative Chlamydia trachomatis, RHETT Positive Negative A Neisseria gonorrhoeae, RHETT Negative Negative HCV Antibody RFX to Quant PC [id number] Reviewed date:09/05/2025 04:18:32 PM Interpretation:Negative Performing Lab:[facility], [address], [address], [place], Phone - [phone], Director - [facility] Notes/Report: HCV Ab Non Reactive Non Reactive Interpretation: Not infected with HCV unless early or acute infection is suspected (which may be delayed in an immunocompromised individual), or other evidence exists to indicate HCV infection. HIV Ab/p24 Ag with Reflex-[id number] Reviewed date:09/05/2025 04:18:11 PM Interpretation:Negative Performing Lab:[facility], [address], [address], [place], Phone - [phone], Director - [facility] Notes/Report: HIV Ab/p24 Ag Screen Non Reactive Non Reactive HIV-1/HIV-2 antibodies and HIV-1 p24 antigen were NOT detected. There is no laboratory evidence of HIV infection. HIV Negative Hep B Core Ab, Tot-[id number] Reviewed date:09/05/2025 04:18:44 PM Interpretation:Negative Performing Lab:[facility], [address], [address], [place], Phone - [phone], Director - [facility] Notes/Report: Hep B Core Ab, Tot Negative Negative Hepatitis B Surf Ab Quant-[id number] Reviewed date:09/06/2025 09:01:22 AM Interpretation:Not Immune Performing Lab:[facility], [address], [address], [place], Phone - [phone], Director - [facility] Notes/Report: Hepatitis B Surf Ab Quant <3.5 Immunity>10 mIU/mL L Status of Immunity Anti-HBs Level Inconsistent with Immunity 0.0 - 10.0 Consistent with Immunity >10.0 HBsAg Screen-[id number] Reviewed date:09/05/2025 04:18:21 PM Interpretation:Negative Performing Lab:[facility], [address], [address], [place], Phone - [phone], Director - [facility] Notes/Report: HBsAg Screen Negative Negative Test, Urine Reviewed date:09/04/2025 11:10:20 AM Interpretation:Negative Performing Lab: Notes/Report: Negative Test, Urine Negative Lot # [id number] Exp. Date 01/28/26 T pallidum Screening Maurice -[id number] Reviewed date:09/05/2025 04:17:46 PM Interpretation:TPPA pos, RPR nonreactive Performing Lab:[facility], [address], [address], [place], Phone - [phone], Director - [facility] Notes/Report: T pallidum Antibodies Reactive Non Reactive A RPR Non Reactive Non Reactive Treponemal Antibodies, TPPA Reactive Non Reactive A Interpretation: Syphilis: Treponemal Antibodies with Reflex to RPR and RPR Titer, Reverse Screening and Diagnosis Algorithm Treponemal Treponemal Ab RPR, Qn Ab, TPPA Final Interpretation -------- Non N/A N/A No laboratory evidence Reactive of syphilis. Retest in 2-4 weeks if recent exposure is suspected. -------- Reactive Non Non Treponemal antibodies Reactive Reactive not confirmed. Inconclusive for syphilis; potential early syphilis, possible false positive. Retest in 2-4 weeks if recent exposure is suspected. -------- Reactive Non Reactive Treponemal antibodies Reactive detected. Consistent with past or current (potential early) syphilis. -------- Reactive >/=1:1 N/A Treponemal and nontreponemal antibodies detected. Consistent with current or past syphilis. T pallidum Screening Maurice -[id number] Reviewed date:09/12/2025 02:34:33 PM Interpretation:RPR non-reactive, repeat at tx Performing Lab:[facility], [address] [place] [address], [address], [place], Phone - [phone], Director - [facility] Notes/Report: T pallidum Antibodies Reactive Non Reactive A RPR Non Reactive Non Reactive Treponemal Antibodies, TPPA Reactive Non Reactive A Interpretation: Syphilis: Treponemal Antibodies with Reflex to RPR and RPR Titer, Reverse Screening and Diagnosis Algorithm Treponemal Treponemal Ab RPR, Qn Ab, TPPA Final Interpretation -------- Non N/A N/A No laboratory evidence Reactive of syphilis. Retest in 2-4 weeks if recent exposure is suspected. -------- Reactive Non Non Treponemal antibodies Reactive Reactive not confirmed. Inconclusive for syphilis; potential early syphilis, possible false positive. Retest in 2-4 weeks if recent exposure is suspected. -------- Reactive Non Reactive Treponemal antibodies Reactive detected. Consistent with past or current (potential early) syphilis. -------- Reactive >/=1:1 N/A Treponemal and nontreponemal antibodies detected. Consistent with current or past syphilis. Reason For Referral No Information Medications Medication SIG (Take, Route, Frequency, Duration) Notes Start Date End Date Status Bicillin L-A 5493735 UNIT/4ML Suspension Prefilled Syringe as directed Intramuscular 09/11/2025 Active Biotin Active Bicillin L-A 3203750 UNIT/4ML Suspension Prefilled Syringe as directed Intramuscular 09/25/2025 Active Bicillin L-A 4840011 UNIT/4ML Suspension Prefilled Syringe as directed Intramuscular 09/18/2025 Active MetroGel-Vaginal 0.75 % Gel 1 application at bedtime Vaginal Once a day; Duration: 5 day(s) 09/11/2025 Not-Taking/PRN Levonorgestrel 1.5 MG Tablet as directed Orally May take upto 5 days after sex as needed; Duration: 1 days 09/04/2025 Active Doxycycline Hyclate 100 MG Capsule 1 capsule Orally Twice a day; Duration: 7 days take with food avoiding dairy 09/11/2025 Not-Taking/PRN Social History Sex Assigned At : Social History Observation Description Sex Assigned At Female Social History HIV Risk Assessment Social Info Question Answer Notes Additional Questions Is an HIV Risk Asse ssment being conducted? No Reproductive Life Plan: Social Info Question Answer Notes Reproductive Life Plan: Do you want to have chil dren? No, I don't want to have children How sure are you that you will be able to use your control method without any problems? Sure People's plans change. Is it possible you or your partner could ever decide to become ? No Human Trafficking: Social Info Question Answer Notes Human Trafficking Experienced: No PrEP for HIV: Social Info Question Answer Notes PrEP for HIV Is the client intere sted in beginning/continuing PrEP for HIV? No Sexual History: Social Info Question Answer Notes Sexual History: Sexual History Reviewed: Partner s, Practices, Protection/Past STIs, Prevention of Currently sexually active? Yes Sexually active with: Men Number of male partners 1 Your sexual activities include: vaginal intercourse Reviewed types of EC? No Do you use condoms? No Date of last unprotected intercourse: 09/01/2025 Number of partners in past 3 months: 1 Number of partners in past year: 1 What is the client's primary method to prevent at the end of their visit? IUD - Paragard Does your partner(s) currently have any STIs? No Completed Gardasil vaccination series? No Counseling Provided: Social Info Question Answer Notes Counseling Provided Please indicate the length of time, in minutes, that counseling was provided. 8 Counseling Was Provided By: karen Drugs/Alcohol: Social Info Question Answer Notes Drug/Alcohol Use Do you or have you used drugs? No Do you or have you used alcohol? No Food Access: Social Info Question Answer Notes Food Access The Client's current access to food is Secure Food Access Relationships: Social Info Question Answer Notes Relationships Has the client exper ienced any of the following: Client has never experienced harmful relationships Housing Social Info Question Answer Notes Housing The client's current living situation is: stable housing Tobacco Use: Social Info Question Answer Notes Tobacco Use: Do you/have you used tobacco? No Tobacco Smoking Status Never smoker Section Notes: Not reviewed today Vital Signs Blood pressure diastolic 68 mm Hg 09/25/2025 Height 5'3 in 09/25/2025 Blood pressure systolic 102 mm Hg 09/25/2025 Weight 132 lbs 09/25/2025 BMI 23.38 kg/m2 09/25/2025 Encounters Encounter Location Date Provider Diagnosis [address] [id number] 09/04/2025 MERT BETHEA Encounter for rout ine checking of intrauterine contraceptive device Z30.431 ; IUD Removal Z30.432 ; Encounter for test, result negative Z32.02 ; Encounter for screening for other infectious and parasitic diseases Z11.8 ; Encounter for screening for infections with a predominantly sexual mode of transmission Z11.3 ; HIV Screening Z11.4 ; Screening for other viral diseases Z11.59 ; Vaginal discharge N89.8 and Encounter for prescription of emergency contraception Z30.[address] [id number] 09/11/2025 MERT BETHEA Syphilis, unspecif ied A53.9 ; Counseling, unspecified Z71.9 ; Encounter for screening for infections with a predominantly sexual mode of transmission Z11.3 ; Chlamydial infection A74.9 and Acute vaginitis N76.[address] [id number] 09/18/2025 MERT BETHEA Syphilis, unspecif ied A53.9 and Counseling, unspecified Z71.[address] [id number] 09/25/2025 MERT BETHEA Syphilis, unspecif ied A53.9 and Counseling, unspecified Z71.[address] [id number] 09/05/2025 MERT BETHEA [address] [id number] 09/09/2025 MERTERIN BETHEA [address] [id number] 09/11/2025 MERTERIN BETHEA Assessments Encounter Date Diagnosis (ICD Code) Assessment Notes Treatment Notes Treatment Clinical Notes Section Notes 09/04/2025 Encounter for routine checking of intrauterine contraceptive device (ICD-10 - Z30.431) Reviewed the new shift towards heavier cycles and shorter cycle length. Reviewed options for further evaluation with STI screening and IUD placement check vs IUD removal today. Clt would like removal today. Will do STI screening. Clt would like a hormonal IUD. Ok to use condoms in the meantime, declines a different hormonal option as a bridge. Condoms given Need 2 out of 3 Sections from A-C Section A) Problems (only need one from below) One acute or uncomplicated illness/injury Section B) Data (at least one of the following categories in this section) Category 1: (Choose 2 of the following): Order unique tests Section C) Risk Document low risk of morbidity/morta lity 09/04/2025 IUD Removal (ICD-10 - Z30.432) Consent reviewed and signed. Clt tolerated well Need 2 out of 3 Sections from A-C Section A) Problems (only need one from below) One acute or uncomplicated illness/injury Section B) Data (at least one of the following categories in this section) Category 1: (Choose 2 of the following): Order unique tests Section C) Risk Document low risk of morbidity/morta lity 09/11/2025 Syphilis, unspecified (ICD-10 - A53.9) Discussed etiology, transmission, and treatment of syphilis. Patient was treated today with Bicillin L-A, 2.4 million units IM (gluteal). No concerns for allergic response. Patient warned about flu like symptoms from Jarisch-Herxheime r reaction, and pain at the injection site(s). Advised Tylenol or Ibuprofen as needed. Barrier method or abstinence recommended x 7 days post treatment. Reviewed follow-up plan. Recommended 100% barrier method for prevention of future STIs. Plan of care reviewed with [facility] assistant to the ceo. Staff Software Engineer to coordinate care for any partners. [facility] form to be submitted after completion of treatment regimen. Clt counseled by Christi by CAMILLA over phone in clinic today. I also reviewed case with Christi. Plan to start treatment for possible late latent treatment and repeat syphilis screening. If RPR number rise then maybe early new infection but if remains nonreactive then will complete late latent treatment. Clt to discuss situation with partner and she will encourage partner to come in for testing and at the very least treatment for CT Spent 25 minutes doing the following: Chart Prep Obtaining/revie wing history Performing medically necessary exam Counseling/Coor dination of Care Documenting the visit Educating the patient Ordering medication/test /procedures Communication with other providers I Established Patient: [id number] 20 Minutes 09/11/2025 Counseling, unspecified (ICD-10 - Z71.9) Spent 25 minutes doing the following: Chart Prep Obtaining/revie wing history Performing medically necessary exam Counseling/Coor dination of Care Documenting the visit Educating the patient Ordering medication/test /procedures Communication with other providers I Established Patient: [id number] 20 Minutes 09/18/2025 Syphilis, unspecified (ICD-10 - A53.9) Discussed etiology, transmission, and treatment of syphilis. Patient was treated today with Bicillin L-A, 2.4 million units IM (gluteal). No concerns for allergic response. Patient warned about flu like symptoms from Jarisch-Herxheime r reaction, and pain at the injection site(s). Advised Tylenol or Ibuprofen as needed. Barrier method or abstinence recommended x 7 days post treatment. Reviewed follow up plan. Recommended 100% barrier method for prevention of future STIs. Plan of care reviewed with [facility] assistant to the ceo. Staff Software Engineer to coordinate care for any partners. [facility] form submitted. Spent 10 minutes doing the following: Chart Prep Obtaining/revie wing history Performing medically necessary exam Counseling/Coor dination of Care Documenting the visit Educating the patient Ordering medication/test /procedures Established Patient: [id number] 10 Minutes 09/18/2025 Counseling, unspecified (ICD-10 - Z71.9) Spent 10 minutes doing the following: Chart Prep Obtaining/revie wing history Performing medically necessary exam Counseling/Coor dination of Care Documenting the visit Educating the patient Ordering medication/test /procedures Established Patient: [id number] 10 Minutes 09/25/2025 Syphilis, unspecified (ICD-10 - A53.9) Discussed etiology, transmission, and treatment of syphilis. Patient was treated today with Bicillin L-A, 2.4 million units IM (gluteal). No concerns for allergic response. Patient warned about flu like symptoms from Jarisch-Herxheime r reaction, and pain at the injection site(s). Advised Tylenol or Ibuprofen as needed. Barrier method or abstinence recommended x 7 days post treatment. Reviewed follow up plan. Recommended 100% barrier method for prevention of future STIs. Plan of care reviewed with [facility] assistant to the ceo. Staff Software Engineer to coordinate care for any partners. [facility] form submitted. Spent 10 minutes doing the following: Chart Prep Obtaining/revie wing history Performing medically necessary exam Counseling/Coor dination of Care Documenting the visit Educating the patient Ordering medication/test /procedures Established Patient: [id number] 10 Minutes 09/25/2025 Counseling, unspecified (ICD-10 - Z71.9) Spent 10 minutes doing the following: Chart Prep Obtaining/revie wing history Performing medically necessary exam Counseling/Coor dination of Care Documenting the visit Educating the patient Ordering medication/test /procedures Established Patient: [id number] 10 Minutes 09/11/2025 Encounter for screening for infections with a predominantly sexual mode of transmission (ICD-10 - Z11.3) Discussed STI risks, screenings that are available through [facility] and safe sex. Clt aware of lab processing times and how to view results on portal and how positive results will be communicated Spent 25 minutes doing the following: Chart Prep Obtaining/revie wing history Performing medically necessary exam Counseling/Coor dination of Care Documenting the visit Educating the patient Ordering medication/test /procedures Communication with other providers I Established Patient: [id number] 20 Minutes 09/04/2025 Encounter for test, result negative (ICD-10 - Z32.02) Need 2 out of 3 Sections from A-C Section A) Problems (only need one from below) One acute or uncomplicated illness/injury Section B) Data (at least one of the following categories in this section) Category 1: (Choose 2 of the following): Order unique tests Section C) Risk Document low risk of morbidity/morta lity 09/04/2025 Encounter for screening for other infectious and parasitic diseases (ICD-10 - Z11.8) Need 2 out of 3 Sections from A-C Section A) Problems (only need one from below) One acute or uncomplicated illness/injury Section B) Data (at least one of the following categories in this section) Category 1: (Choose 2 of the following): Order unique tests Section C) Risk Document low risk of morbidity/morta lity 09/11/2025 Chlamydial infection (ICD-10 - A74.9) We discussed etiology, transmission, and treatment of chlamydia. Medication considerations discussed, recommended completing full course of antibiotics and to abstain during treatment. Partner notification and treatment discussed and offered. Follow up in [address] retest. 100% barrier method use recommended for prevention of future STIs. Medication dispensed from in house stock. Lot number: [id number], exp 03/13/26 Declines EPT Rx as she plans to encoruage clt to come into clinic for testing and treatment Spent 25 minutes doing the following: Chart Prep Obtaining/revie wing history Performing medically necessary exam Counseling/Coor dination of Care Documenting the visit Educating the patient Ordering medication/test /procedures Communication with other providers I Established Patient: [id number] 20 Minutes 09/11/2025 Acute vaginitis (ICD-10 - N76.0) Reviewed BV findings and treatment options. No sexual activity during treatment and condom/barrier use encouraged following for at least a month for prevention. Medication dispensed from in house stock. Lot number: [id number], exp Spent 25 minutes doing the following: Chart Prep Obtaining/revie wing history Performing medically necessary exam Counseling/Coor dination of Care Documenting the visit Educating the patient Ordering medication/test /procedures Communication with other providers I Established Patient: [id number] 20 Minutes 09/04/2025 Encounter for screening for infections with a predominantly sexual mode of transmission (ICD-10 - Z11.3) Discussed STI risks, screenings that are available through [facility] and safe sex. Clt aware of lab processing times and how to view results on portal and how positive results will be communicated Need 2 out of 3 Sections from A-C Section A) Problems (only need one from below) One acute or uncomplicated illness/injury Section B) Data (at least one of the following categories in this section) Category 1: (Choose 2 of the following): Order unique tests Section C) Risk Document low risk of morbidity/morta lity 09/04/2025 HIV Screening (ICD-10 - Z11.4) Need 2 out of 3 Sections from A-C Section A) Problems (only need one from below) One acute or uncomplicated illness/injury Section B) Data (at least one of the following categories in this section) Category 1: (Choose 2 of the following): Order unique tests Section C) Risk Document low risk of morbidity/morta lity 09/04/2025 Screening for other viral diseases (ICD-10 - Z11.59) Need 2 out of 3 Sections from A-C Section A) Problems (only need one from below) One acute or uncomplicated illness/injury Section B) Data (at least one of the following categories in this section) Category 1: (Choose 2 of the following): Order unique tests Section C) Risk Document low risk of morbidity/morta lity 09/04/2025 Vaginal discharge (ICD-10 - N89.8) Will further evaluate discharge concerns with vag plus Need 2 out of 3 Sections from A-C Section A) Problems (only need one from below) One acute or uncomplicated illness/injury Section B) Data (at least one of the following categories in this section) Category 1: (Choose 2 of the following): Order unique tests Section C) Risk Document low risk of morbidity/morta lity 09/04/2025 Encounter for prescription of emergency contraception (ICD-10 - Z30.012) Clt aware of the risk of with IUD removal and recent UPI in the last 5 days. Clt would like emerency contraception to lower that risk. Medication dispensed from in house stock. Need 2 out of 3 Sections from A-C Section A) Problems (only need one from below) One acute or uncomplicated illness/injury Section B) Data (at least one of the following categories in this section) Category 1: (Choose 2 of the following): Order unique tests Section C) Risk Document low risk of morbidity/morta lity Plan Of Treatment Next Appt Details Provider Name:MERT NEEMA, 08/2025 10:00:00 AM, [address] [place] [address], [phone], Provider Name:MERT NEEMA, 03:00:00 PM, [address] [place] [address], [phone], Insurance Providers Payer Name Payer Address Payer Phone Subscriber Number Group Number Insured Name Patient Relationship to Insured Coverage Start Date Coverage End Date [facility] - [id number] [address] [place] [id number] Un Fee Cat 2 Sushila Tee Self - patient is the insured Medications Administered Medication Instructions Date of Administration Dosage Notes Bicillin 09/11/2025 [id number] units Bicillin 09/18/2025 6168647 units Bicillin 09/25/2025 6896341 units Medical (General) History Medical History History ICD Code CT 08/2025 Syphilis tx late latent 08/2025 Hospitalization History Reason Date(Month/Year) childbirth 2017
== END 2025-10-03 14:46 | disposition home or self-care (01) ==
LOC: HO.HHCX 14:45
PROVIDERS: PCP Family Medicine; Visit Provider Family Medicine
DX: R76.11 Nonspecific reaction to tuberculin skin test without active tuberculosis (principal)
CPT/HCPCS: 71046

== ENCOUNTER → 2025-10-03 14:53 | Outpatient (BNV) | payer SELFPAY | PROVIDERS: PCP Family Medicine; Visit Provider Radiology Diagnostic Radiology | DX: R76.11 Nonspecific reaction to tuberculin skin test without active tuberculosis (principal) | CPT/HCPCS: 71046 ==

== ENCOUNTER 2025-10-04 08:12 | Outpatient (REF) | payer OTHER, MEDICAID, SELFPAY ==
--- OUTSIDE RECORDS SUMMARY | 2025-09-18 09:45 | XMS_ITS ---
Author Organization [facility] Address [address] [place] [address] Care Team Providers Care Administrative Assistant Data Entry Name Role Phone MERT BETHEA Unavailable [phone] REASON FOR VISIT IUD In Social History Sex Assigned At : Social History Observation Description Sex Assigned At Female Encounters Encounter Location Date Provider Diagnosis [address] [phone] 03/2025 MERT BETHEA Plan Of Treatment Next Appt Details Provider Name:MERT BETHEA, 08/2025 10:00:00 AM, [address] [place] [address], [id number], Provider Name:MERT BETHEA, 03:00:00 PM, [address] [place] [address], [phone], Progress Notes * Marc ORTEGAB:1999 (25 yo F)Acc No.[id number]:09/18/2025 Progress Note Patient: Jessi rollinsSushila choe Provider: Timur BETHEA :2000 A ge:25 Y S ex:Female Date:09/18/2025 Address:[address] [place] [place], [id number] Subjective: * Chief Complaints: * I UD In * Electronic signature of ANNELIESE BETHEA CNM on 10/04/2025 at 08:15 AM EST Sign off status: Pending * Provider: Timur BETHEA Date: 11/18/2024 Generated for Terri odonnell/Suzi/Merlin on: 12/04/2024 08:15 AM EST
--- OUTSIDE RECORDS SUMMARY | 2025-10-03 14:20 | XMS_ITS | Encounter Summary ---
Author Organization [employer] Address [address] [facility] 7t [place] [address] Care Team Providers Care Contract Associate Name Role Phone Unavailable Primary Care Provider Unavailabl e Encounter Details Date Type Department Care Team (Late st Contact Info) Description 10/03/2025 2:20 PM EST Office Visit [facility] [address] [place] [address] Phoebe Grajeda DO [address] [place] [address] Acute intractable headache, unspecified headache type (Primary [...] y.o. 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 She has not hadPCP since she moved from [facility] more than one year ago. HPI She [...] TB test performed at a clinic in [place] on Tuesday and follow up on Tuesday [...] -advised keep MOCTEZUMA log and bring to PRODUCER DIRECTOR visit for review -advised go to ED [...] - T-SPOT??.TB; Future F/U with me for PRODUCER DIRECTOR visit or sooner prn Current Outpatient Medications: [...] PM EST Narrative 10/03/2025 3:08 PM EST [address] [address] XRay Report Signed Patient: Sushila Ortiz MR# : [id number] : 2000 Acct:[id number] Age/Sex: 25 / F ADM Date: 10/03/25 Loc: [facility]HCX Attending Dr: Phoebe Grajeda DO Ordering Physician: Phoebe Grajeda DO Date of Service: 10/03/25 Procedure(s): XR chest 2V Accession Number(s): [id number] cc: Phoebe Grajeda DO Reason for Exam: [...] by: Clay Obregon MD 10/03/2025 03:05 PM [facility] Dictated By: Clay Obregon MD Signed By: <Electronically signed by Clay Obregon MD in OV> 10/03/25 1505 DD/ 1515 TD/TT: 10/03/25 1503 Pet Handler: Procedure Note Donotuseinterpreter, Image - 10/03/[address] [address] XRay Report Signed Patient: Young Ortiz# : [id number] : 2000Acct:[id number] Age/Sex: 25 / FADM Date: 10/03/25 Loc: HO.HHCX Attending Dr: Phoebe Grajeda DO Ordering Physician: Phoebe Grajeda DO Date of Service: 10/03/25 Procedure(s): XR chest 2V Accession Number(s): [id number] cc: Phoebe Grajeda DO Reason for Exam: [...] 10/03/25 1505 DD/ 1515 TD/TT: 10/03/25 1503 Pet Handler: Phoebe Grajeda DO IMG XR PROCEDURES Final Resu lt * POCT Urine (10/03/2025 2:55 PM EST) Preg Test, Ur Negative Negative, Indeterminate, None Detected, Trace, 3+, Specimen unsatisfactory for evaluation, Weakly Positive, 1+, 2+ QC Media Lot # [id number] Lot# Expiration Date [id number] Urine 10/03/2025 2:55 PM EST Phoebe Grajeda [...]
--- OUTSIDE RECORDS SUMMARY | 2025-10-04 08:15 | XMS_ITS | Patient Health Record ---
Author Organization [facility] Address [address] [place] [id number] Care Team Providers Care Bmet Name Role Phone MERT BETHEA Unavailable [phone] Allergies No Known Allergies Results Component Value Reference Range Flag Notes T pallidum Screening [place] -[id number] Reviewed date:09/12/2025 02:34:33 PM Interpretation:RPR non-reactive, repeat at tx Performing Lab:[facility], [address], [address], [place], Phone - [phone], Director - [facility] Notes/Report: T pallidum Antibodies Reactive Non Reactive [...] detected. Consistent with current or past syphilis. NuSwab VG+, Pooja 6sp-1800 68 Reviewed date:09/09/2025 11:47:12 AM Interpretation:Chlamydia and BV POSITIVE Performing Lab:[facility] [place], [address] [place] [address], [place], Phone - [phone], Director - Peter Notes/Report: and Drug Administration. by [facility]. It has not been cleared or approved by the [employer] was [employer] and its performance characteristics determined 129676-Fgfbigf krusei, RHETT 296127-Z parapsilosis/tropicalis; 162405-Izqcnng lusitaniae, RHETT; Test(s) 324393-Koikueh albicans, RHETT; 276500-Zahnmym glabrata, RHETT; and Drug Administration. by [facility]. It has not been cleared or approved by the [employer] was [employer] and its performance characteristics determined Megasphaera 1 Test(s) 233623- Atopobium vaginae; 989658- BVAB 2; 593154- Atopobium vaginae High - 2 A BVAB [...] Negative HCV Antibody RFX to Quant PC [id number] Reviewed date:09/05/2025 04:18:32 PM Interpretation:Negative Performing Lab:[facility] [place], [address], [address], [place], Phone - [phone], Director - [facility] Notes/Report: HCV Ab Non Reactive Non Reactive Interpretation: Not infected with HCV unless early or acute infection is suspected (which may be delayed in an immunocompromised individual), or other evidence exists to indicate HCV infection. HIV Ab/p24 Ag with Reflex-08 3935 Reviewed date:09/05/2025 04:18:11 PM Interpretation:Negative Performing Lab:[facility] [place], [address], [address], [place], Phone - [phone], Director - [facility] Notes/Report: HIV Ab/p24 Ag Screen Non Reactive Non Reactive HIV-1/HIV-2 antibodies and HIV-1 p24 antigen were NOT detected. There is no laboratory evidence of HIV infection. HIV Negative T pallidum Screening [place] -363623 Reviewed date:09/05/2025 04:17:46 PM Interpretation:TPPA pos, RPR nonreactive Performing Lab:[facility] [place], [address], [address], [place], Phone - [phone], Director - [facility] Notes/Report: T pallidum Antibodies Reactive Non Reactive [...] detected. Consistent with current or past syphilis. Hep B Core Ab, Tot-809315 Reviewed date:09/05/2025 04:18:44 PM Interpretation:Negative Performing Lab:[facility], [address], [place], [place], Phone - [phone], Director [facility] Notes/Report: Hep B Core Ab, Tot Negative Negative Hepatitis B Surf Ab Quant-00 6530 Reviewed date:09/06/2025 09:01:22 AM Interpretation:Not Immune Performing Lab:[facility] [place], [address], [address], [place], Phone - [phone], Director - [facility] Notes/Report: Hepatitis B Surf Ab Quant <3.5 Immunity>10 mIU/mL L Status of Immunity Anti-HBs Level Inconsistent with Immunity 0.0 - 10.0 Consistent with Immunity >10.0 HBsAg Screen-730102 Reviewed date:09/05/2025 04:18:21 PM Interpretation:Negative Performing Lab:[facility] [place], [address], [address], [place], Phone - [phone], Director - [facility] Notes/Report: HBsAg Screen Negative Negative Test, Urine Reviewed date:09/04/2025 11:10:20 AM Interpretation:Negative Performing Lab: Notes/Report: Negative Test, Urine Negative Lot # [id number] Exp. Date 01/28/26 Reason For Referral No Information Medications Medication SIG (Take, Route, Frequency, Duration) Notes Start Date End Date Status Bicillin L-A 1494495 UNIT/4ML Suspension Prefilled Syringe as directed Intramuscular 09/11/2025 Active Biotin Active Bicillin L-A 8086676 UNIT/4ML Suspension Prefilled Syringe as directed Intramuscular 09/25/2025 Active Bicillin L-A 7423779 UNIT/4ML Suspension Prefilled Syringe as directed Intramuscular [...] 09/25/2025 Encounters Encounter Location Date Provider Diagnosis [address] [id number] 09/04/2025 MERT BETHEA Encounter for rout ine [...] Encounter for prescription of emergency contraception Z30.[address] [id number] 09/11/2025 MERT BETHEA Syphilis, unspecif ied A53.9 ; Counseling, unspecified Z71.9 ; Encounter for screening for infections with a predominantly sexual mode of transmission Z11.3 ; Chlamydial infection A74.9 and Acute vaginitis N76.[address] [id number] 09/18/2025 MERT BETHEA Syphilis, unspecif ied A53.9 and Counseling, unspecified Z71.[address] [id number] 09/25/2025 MERT BETHEA Syphilis, unspecif ied A53.9 and Counseling, unspecified Z71.[address] [id number] 09/05/2025 MERT BETHEA [address] [id number] 09/09/2025 MERTERIN BETHEA [address] [id number] 09/11/2025 MERTERIN BETHEA Assessments Encounter Date Diagnosis [...] future STIs. Plan of care reviewed with [facility] swatch checker. Recruiting Specialist to coordinate care for any partners. [facility] form to be submitted after completion [...] Communication with other providers I Established Patient: [id number] 20 Minutes 09/11/2025 Counseling, unspecified (ICD-10 - Z71.9) Spent 25 minutes doing the following: Chart Prep Obtaining/revie wing history Performing medically necessary exam Counseling/Coor dination of Care Documenting the visit Educating the patient Ordering medication/test /procedures Communication with other providers I Established Patient: [id number] 20 Minutes 09/18/2025 Syphilis, unspecified (ICD-10 - [...] future STIs. Plan of care reviewed with [facility] swatch checker. Recruiting Specialist to coordinate care for any partners. [facility] form submitted. Spent 10 minutes doing the following: Chart Prep Obtaining/revie wing history Performing medically necessary exam Counseling/Coor dination of Care Documenting the visit Educating the patient Ordering medication/test /procedures Established Patient: [id number] 10 Minutes 09/18/2025 Counseling, unspecified (ICD-10 - Z71.9) Spent 10 minutes doing the following: Chart Prep Obtaining/revie wing history Performing medically necessary exam Counseling/Coor dination of Care Documenting the visit Educating the patient Ordering medication/test /procedures Established Patient: [id number] 10 Minutes 09/25/2025 Syphilis, unspecified (ICD-10 - [...] future STIs. Plan of care reviewed with [facility] swatch checker. Recruiting Specialist to coordinate care for any partners. [facility] form submitted. Spent 10 minutes doing the following: Chart Prep Obtaining/revie wing history Performing medically necessary exam Counseling/Coor dination of Care Documenting the visit Educating the patient Ordering medication/test /procedures Established Patient: [id number] 10 Minutes 09/25/2025 Counseling, unspecified (ICD-10 - Z71.9) Spent 10 minutes doing the following: Chart Prep Obtaining/revie wing history Performing medically necessary exam Counseling/Coor dination of Care Documenting the visit Educating the patient Ordering medication/test /procedures Established Patient: [id number] 10 Minutes 09/11/2025 Encounter for screening for [...] Communication with other providers I Established Patient: [id number] 20 Minutes 09/04/2025 Encounter for test, result [...] dispensed from in house stock. Lot number: [id number], exp 03/13/26 Declines EPT Rx as she plans to encoruage clt to come into clinic for testing and treatment Spent 25 minutes doing the following: Chart Prep Obtaining/revie wing history Performing medically necessary exam Counseling/Coor dination of Care Documenting the visit Educating the patient Ordering medication/test /procedures Communication with other providers I Established Patient: [id number] 20 Minutes 09/11/2025 Acute vaginitis (ICD-10 - N76.0) Reviewed BV findings and treatment options. No sexual activity during treatment and condom/barrier use encouraged following for at least a month for prevention. Medication dispensed from in house stock. Lot number: [id number], exp Spent 25 minutes doing the following: Chart Prep Obtaining/revie wing history Performing medically necessary exam Counseling/Coor dination of Care Documenting the visit Educating the patient Ordering medication/test /procedures Communication with other providers I Established Patient: [id number] 20 Minutes 09/04/2025 Encounter for screening for [...] Details Provider Name:MERT NEEMA, 08/2025 10:00:00 AM, [address] [place] [address], [phone], Provider Name:MERT NEEMA, 03:00:00 PM, [address] [place] [address], [phone], Insurance Providers Payer Name Payer Address Payer Phone Subscriber Number Group Number Insured Name Patient Relationship to Insured Coverage Start Date Coverage End Date [facility] - [id number] [address] [place] [id number] Un Fee Cat 2 Sushila Tee Self - patient is the insured Medications Administered Medication Instructions Date of Administration Dosage Notes Bicillin 09/11/2025 1860520 units Bicillin 09/18/2025 6575945 units Bicillin 09/25/2025 8690092 units Medical (General) History Medical History History ICD Code CT 08/2025 Syphilis tx late latent 08/2025 Hospitalization History Reason Date(Month/Year) childbirth 2017
--- OUTSIDE RECORDS SUMMARY | 2025-10-04 08:15 | XMS_ITS | Encounter Summary ---
Author Organization [employer] Address [address] [place] [address] [address] [place] [address] Care Team Providers Care Technical Cable Jointer Name Role Phone Unavailable Primary Care Provider [...]
--- OUTSIDE RECORDS SUMMARY | 2025-10-04 08:15 | XMS_ITS | Clinical Summary ---
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 10/03/2025 Travel 09/26/2025 Telephone [facility] [address] [place] [address] [phone] Naldo Gordon MD 09/02/2025 Telephone [facility] [address] [place] [phone] Naldo Gordon MD 09/02/2025 Telephone [facility] [address] [place] [phone] Naldo Gordon MD from Last 3 Months [...] PM EST Narrative 10/03/2025 3:08 PM EST [address] [address] XRay Report Signed Patient: Sushila Ortiz MR# : [id number] : 2000 Acct:[id number] Age/Sex: 25 / F ADM Date: 10/03/25 Loc: HO.HHCX Attending Dr: Phoebe Grajeda DO Ordering Physician: Phoebe Grajeda DO Date of Service: 10/03/25 Procedure(s): XR chest 2V Accession Number(s): [id number] cc: Jurcsak,Phoebe A DO Reason for Exam: [...] 10/03/25 1505 DD/ 1515 TD/TT: 10/03/25 1503 Seat Cover Installer: Procedure Note Donotuseinterpreter, Image - 10/03/2025 [place] [address] XRay Report Signed Patient: Young Ortiz# : [id number] : 2000Acct:[id number] Age/Sex: M Date: 10/03/25 Loc: HO.HHCX Attending Dr: Phoebe Grajeda DO Ordering Physician: Phoebe Grajeda DO Date of Service: 10/03/25 Procedure(s): XR chest 2V Accession Number(s): [id number] cc: Phoebe Grajeda DO Reason for Exam: [...] 10/03/25 1505 DD/ 1515 TD/TT: 10/03/25 1503 Seat Cover Installer: Phoebe Grajeda DO IMG XR PROCEDURES Final Resu lt * POCT Urine (10/03/2025 2:55 PM EST) Preg Test, Ur Negative Negative, Indeterminate, None Detected, Trace, 3+, Specimen unsatisfactory for evaluation, Weakly Positive, 1+, 2+ QC Media Lot # [id number] Lot# Expiration Date [id number] Urine 10/03/2025 2:55 PM EST Phoebe Grajeda DO POINT OF CARE TEST ENTER/KEYANA T ORDERABLES Final Result from Last 3 Months Insurance [facility] FULL
[2025-10-04 11:47] LABS: Hematocrit 36.8 % (37.0-47.0); Hemoglobin 11.5 g/dl (12.0-16.0); Mean Corpuscular HGB Conc 31.3 g/dl (31.0-35.0); Mean Corpuscular Hemoglobin 26.1 pg (27.0-33.0); Mean Corpuscular Volume 83.4 fL (80.0-98.0); NRBC Abs Auto 0.000 X10*3/uL (0.0-0.012); NRBC Pct Auto 0.0 /100WBC (0.0-0.2); Platelet Count 405 X10*3/uL (160-400); Red Blood Count 4.41 X10*6/uL (4.20-5.50); White Blood Count 6.7 X10*3/uL (4.8-10.8)
[2025-10-04 12:25] LABS: ~Hepatitis A Antibody IgG 0.43 S/CO (0.00-0.99)
[2025-10-04 12:31] LABS: HBS Num1 7.81 mIU/mL (0-7.99); HBc Num1 0.05 S/CO (0.00-0.79); HBsAGNum1 0.38 S/CO (0.00-0.99); HIV Num 1 0.05 S/CO (0.00-0.99); Hepatitis B Surface Antigen Negative (Negative); ~HepC Num1 0.13 S/CO (0.00-0.79); ~Hepatitis B Surface Antibody NONREACTIVE (Nonreactive); ~Hepatitis C Antibody Nonreactive (Nonreactive)
[2025-10-04 12:40] LABS: Prealbumin 21.0 mg/dL (20-40)
[2025-10-04 13:32] LABS: Alanine Aminotransferase 16 U/L (0-31); Albumin Level 4.5 g/dL (3.5-5.0); Alkaline Phosphatase 82 U/L (39-117); Anion Gap 7 (12-20); Aspartate Amino Transferase 29 U/L (5-31); Blood Urea Nitrogen 11 mg/dL (9-16); Calcium 9.2 mg/dL (8.4-10.2); Carbon Dioxide 27 mmol/L (22-29); Chloride 113 mmol/L (96-108); Cholesterol 120 mg/dL (<200); Estimated Glomerular Filt Rate > 60; HDL Cholesterol 47 mg/dL (>40); Potassium 3.9 mmol/L (3.3-5.1); Sodium 143 mmol/L (135-145); Total Protein 7.7 g/dL (6.5-8.0); Triglycerides 60 mg/dL (<150)
[2025-10-04 13:39] LABS: Free T4 (Free Thyroxine) 0.89 ng/dL (0.71-1.85); Thyroid Stimulating Hormone 1.09 uIU/mL (0.32-4.0)
[2025-10-07 09:03] LABS: TS Negative Control Passed; TS Panel A 0; TS Panel B 0; TS Positive Control Passed; TSpotTB Negative (Negative)
== END 2025-10-04 08:13 | disposition home or self-care (01) ==
LOC: HO.HHCL 08:12
PROVIDERS: PCP Family Medicine; Visit Provider Family Medicine
DX: Z11.4 Encounter for screening for human immunodeficiency virus [HIV] (principal); Z13.1 Encounter for screening for diabetes mellitus; Z13.29 Encounter for screening for other suspected endocrine disorder; Z13.6 Encounter for screening for cardiovascular disorders; Z13.21 Encounter for screening for nutritional disorder; R11.0 Nausea; R76.11 Nonspecific reaction to tuberculin skin test without active tuberculosis
CPT/HCPCS: 36415; 80048; 80061; 80076; 82306; 83036; 84134; 84439; 84443; 85027; 86481; 86592; 86704; 86706; 86708; 86803; 87340; 87389

== ENCOUNTER 2025-10-21 08:09 | Outpatient (REF) | payer MEDICAID, SELFPAY ==
[2025-10-21 12:44] LABS: Iron 26 mcg/dL (30-160); Percent Iron Saturation 9 % (15-50); Total Iron Binding Capacity 287 mcg/dL (228-428); Unsaturated Iron Binding 261 ug/dL
[2025-10-21 12:45] LABS: Ferritin 7 ng/mL (10-122)
== END 2025-10-21 08:10 | disposition home or self-care (01) ==
LOC: HO.HHCL 08:09
PROVIDERS: PCP Family Medicine; Visit Provider Family Medicine
DX: D64.9 Anemia, unspecified (principal)
CPT/HCPCS: 36415; 82728; 83540